=== PATIENT | female | born 1975 | race African-American/Black ===

== ENCOUNTER → 2016-07-05 | Outpatient (REF) ==
--- NOTE | 2016-07-05 13:04 | REP ---
Clinical: Pain and disability . Comparison: None . Technique: PA and lateral. Findings: The mediastinum and cardiac silhouette are normal. The lung grant are clear and without acute consolidation, effusion, or pneumothorax. The skeletal structures are intact and normal. Impression: 1. No acute cardiopulmonary process. Signed by Gino Arteaga MD 07/05/2016 12:55 P
--- NOTE | 2016-07-05 13:05 | REP ---
Clinical: Pain and disability . Technique: Internal rotation, external rotation, and Y view right and left shoulder . Findings: No acute fracture or dislocation. The acromioclavicular and glenohumeral joints are intact. No periarticular calcifications or degenerative changes are appreciated. Sub acromial space is normal. Surrounding soft tissues are unremarkable. Impression: Normal bilateral shoulder radiographs. Signed by Gino Arteaga MD 07/05/2016 12:55 P
--- NOTE | 2016-07-05 13:06 | REP ---
Clinical: Pain and disability Technique: AP, lateral, bilateral oblique views right and left wrist. Findings: The carpal bones, surrounding osseous structures, soft tissues, and joint spaces are normal for age and symmetric. There is no evidence for acute fracture or dislocation. No subcutaneous emphysema or radiodense foreign body. Impression: Normal bilateral wrist series. Signed by Gino Arteaga MD 07/05/2016 12:56 P
--- NOTE | 2016-07-05 13:07 | REP ---
Clinical: Pain and disability. Technique: AP, lateral, bilateral oblique views of the right and left knee. Findings: The osseous structures and joint spaces are intact and normal for age. There is no evidence for acute fracture or dislocation. No joint effusion is appreciated. Surrounding soft tissues are unremarkable. No subcutaneous emphysema or radiodense foreign body. Impression: Normal age appropriate bilateral knee radiographs Signed by Gino Arteaga MD 07/05/2016 12:57 P
--- NOTE | 2016-07-05 13:08 | REP ---
Clinical: Pain and disability. Technique: AP, lateral, bilateral oblique views of the right and left foot. Findings: Osseous structures, joint spaces, and surrounding soft tissues are symmetric and normal for age. No acute fracture dislocation. No overt arthritic degenerative changes appreciated. Impression: Normal bilateral foot radiograph series Signed by Gino Arteaga MD 07/05/2016 12:59 P
--- NOTE | 2016-07-05 13:08 | REP ---
Clinical: Pain and disability . Technique: AP, lateral, bilateral oblique, and coned-down views. Findings: Alignment and lordosis is maintained. The vertebral bodies including transverse process and spinous processes are intact and normal for age. There is no evidence for acute fracture / compression injury or subluxation. No evidence for spondylolysis or spondylolisthesis. No significant degenerative change is noted. Impression: Normal age appropriate lumbosacral spine radiograph series. Signed by Gino Arteaga MD 07/05/2016 01:01 P
--- NOTE | 2016-07-05 13:08 | REP ---
Clinical: Pain and disability . Technique: AP, lateral, bilateral oblique views of the right and left ankle. Findings: No acute fracture or dislocation. Skeletal structures and joint spaces are intact and normal for age. Ankle mortise appears stable. No subcutaneous emphysema or radiodense foreign body. Impression: Normal bilateral ankle radiograph series. Signed by Gino Arteaga MD 07/05/2016 12:58 P
--- NOTE | 2016-07-05 13:08 | REP ---
Clinical: Pain and disability . Technique: AP, lateral, flexion/extension, bilateral oblique, and open-mouth views. Findings: Alignment and lordosis is maintained. There is no evidence for acute fracture / compression injury or subluxation. No significant degenerative changes are appreciated. Oblique views demonstrate patent neural foramen. Open mouth view demonstrates normal C1-C2 articulation and odontoid process. Impression: Normal, age appropriate cervical spine series. Signed by Gino rAteaga MD 07/05/2016 01:00 P
--- NOTE | 2016-07-05 13:20 | REP ---
Clinical: thoracic pain. Technique: AP, lateral, and swimmers views. Findings: Alignment and kyphosis is maintained. Vertebral bodies intact. No acute fracture / compression injury or subluxation. No degenerative changes. Paravertebral soft tissues are normal. Impression: Normal thoracic spine series. Signed by Gino Arteaga MD 07/05/2016 01:12 P
== END ==
LOC: M SMT 11:09
PROVIDERS: ATTEND Internal Medicine
DX: Z02.71 Encounter for disability determination (principal)

== ENCOUNTER 2016-08-19 18:57 | Emergency (ER) | payer OTHER ==
[~2016-08-19] VITALS: Ht 147.3 cm; Wt 68.0 kg
[2016-08-19] MEDS ORDERED: PRED10TA PO (19:17)
[2016-08-19] MEDS ORDERED: HYDR-733 (19:17)
[2016-08-19] MEDS ORDERED: MOBI15TA PO (19:17)
--- NOTE | 2016-08-19 21:20 | REPUSA ---
Clinical history: Pain, swelling. Findings: The common femoral, superficial femoral, popliteal, and other deep venous structures compre ss normally and demonstrate normal color Doppler flow. Normal venous waveforms with augmentation are seen. Impression: No evidence of deep vein thrombosis in either femoral popliteal venous system.
[2016-08-19 21:34] LABS: BASO % 0.5 % (0.0-1.0); EOS # 0.2 K/mm3 (0.0-0.50); EOS % 2.3 % (0.0-3.0); LARGE UNSTAINED CELL # 0.2 K/mm3 (0.0-0.4); LARGE UNSTAINED CELL % 1.8 % (0.0-4.0); LYMPH # 2.5 K/mm3 (1.5-4.5); LYMPH % 25.3 % (24.0-44.0); MEAN CORPUSCULAR HEMOGLOBIN 30.3 pg (27.0-33.0); MEAN CORPUSCULAR HGB CONC 31.6 g/dl (32.0-36.5); MEAN CORPUSCULAR VOLUME 95.8 fl (80.0-96.0); MONO # 0.5 K/mm3 (0.0-0.8); MONO % 5.8 % (0.0-5.0); NEUTROPHILS # 5.9 K/mm3 (1.8-7.7); NEUTROPHILS % 64.3 % (36.0-66.0); PLATELET COUNT, AUTOMATED 213 k/mm3 (150-450); RED CELL DISTRIBUTION WIDTH 13.2 % (11.5-14.5); WHITE BLOOD COUNT 9.2 K/mm3 (4.0-10.0)
[2016-08-19 21:52] LABS: METHADONE URINE NEGATIVE (NEGATIVE)
[2016-08-19 21:55] LABS: ALBUMIN 3.6 GM/DL (3.2-5.2); ALBUMIN/GLOBULIN RATIO 0.84 (1.00-1.93); ALKALINE PHOSPHATASE 81 U/L (45-117); ALT/SGPT 38 U/L (12-78); ANION GAP 4 MEQ/L (8-16); AST/SGOT 23 U/L (15-37); BILIRUBIN,TOTAL 0.4 MG/DL (0.2-1.0); BLOOD UREA NITROGEN 19 MG/DL (7-18); CALCIUM LEVEL 8.4 MG/DL (8.5-10.1); CARBON DIOXIDE LEVEL 28 MEQ/L (21-32); CHLORIDE LEVEL 106 MEQ/L (98-107); GLOMERULAR FILTRATION RATE > 60.0 (>60); GLUCOSE, FASTING 98 MG/DL (70-105); SODIUM LEVEL 138 MEQ/L (136-145); TOTAL PROTEIN 7.9 GM/DL (6.4-8.2)
[2016-08-19 22:22] LABS: ERYTHROCYTE SEDIMENTATION RATE 10 mm/hr (0-20)
[2016-08-19] MEDS ORDERED: PRED20TA PO (22:50)
[2016-08-19 23:05] VITALS: BP 128/72
--- NOTE | 2016-08-20 09:20 | REP ---
CHEST PA AND LATERAL: 08/19/2016 Comparison 07/05/2016. Clinical history: Fever. Findings: Two-views show the lung grant well inflated. There is no pleural effusion, lateral pleural thickening, acute infiltrate, atelectasis or mass. The heart, mediastinal and hilar contours are normal. Bony thorax without focal lesion. No free air under the diaphragm. Impression: 1. No acute cardiopulmonary change. Signed by Usman Mendez MD 08/20/2016 10:50 A
== END 2016-08-19 23:06 | disposition home or self-care (01) ==
LOC: M ED 20:01
DX: M79.0 Rheumatism, unspecified (principal); M06.9 Rheumatoid arthritis, unspecified; M32.9 Systemic lupus erythematosus, unspecified; F41.9 Anxiety disorder, unspecified; F33.9 Major depressive disorder, recurrent, unspecified; Z79.52 Long term (current) use of systemic steroids

== ENCOUNTER → 2016-12-01 | Outpatient (CLI) | payer OTHER ==
[~2016-12-01] MED LIST: HYDR-733; MOBI15TA PO; PRED10TA2 PO; PRED20TA PO
--- NOTE | 2016-12-01 09:57 | REPMRS ---
Patient History The patient states she has not had a clinical breast exam in over a year. Patient is nulliparous. No known family history of cancer. Digital Mammo Screening Bilat: December 01, 2016 - Exam #: [id number] Bilateral CC and MLO view(s) were taken. Technologist: Tabby Escobedo, Technologist No prior studies available for comparison. FINDINGS: There are scattered fibroglandular densities. There is no evidence of dominant mass, architectural distortion, or clustered microcalcification typical of malignancy. ASSESSMENT: BI-RADS/ACR category 1 mammogram. Negative. Recommendation Routine screening mammogram of both breasts in 1 year (for women over age 40). This mammogram was interpreted with the aid of an FDA-approved computer-aided dectection system. Electronically Signed By: Ernesto Troncoso MD 12/01/16 [id number]
== END ==
LOC: M RAD 09:03
PROVIDERS: ATTEND Obstetrics & Gynecology
DX: Z12.31 Encounter for screening mammogram for malignant neoplasm of breast (principal); Z92.89 Personal history of other medical treatment